=== PATIENT | male | born 1955 | race Caucasian/White ===

== ENCOUNTER 2019-05-31 20:42 | Inpatient (IN) | payer OTHER, MEDICARE ==
[~2019-05-31 20:42] MED LIST: ISOVUE-370 76%-LOCM 1 ML ONE
[2019-05-31 21:05] LABS: Hemoglobin 13.4 g/dL (14.0-18.0); Mean Corpuscular HGB CONC 32.8 g/dL (32.0-36.0); Mean Corpuscular Hemoglobin 30.1 pg (27.0-31.0); Mean Corpuscular Volume 91.9 fL (78.0-98.0); Mean Platelet Volume 7.3 fL (7.4-10.4); Platelet Count 254 thou/uL (130-400); RBC Distribution Width 11.4 % (11.5-14.5); Red Blood Cell (RBC) Count 4.44 mill/uL (4.70-6.10); White Blood Cell (WBC) Count 23.8 thou/uL (4.8-10.8)
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
[2019-05-31 21:21] LABS: Band 3 % (5-11); Lymphocytes 22 % (21-51); MDiff Complete? YES; Monocytes 10 % (0-10); Neutrophil 65 % (42-75)
[2019-05-31 21:25] LABS: ALT (SGPT) 42 U/L (8-55); AST (SGOT) 58 U/L (5-34); Albumin 4.6 g/dL (3.4-4.8); Alkaline Phosphatase 105 U/L (40-110); Anion Gap 14 mmol/L (10-20); BUN (Urea Nitrogen) 33 mg/dL (8.4-25.7); Bilirubin, Total 0.4 mg/dL (0.2-1.2); Calc. Creatinine Clearance 0 mL/min (70-130); Calcium 9.6 mg/dL (7.8-10.44); Carbon Dioxide 20 mmol/L (23-31); Chloride 111 mmol/L (98-107); Estimated GFR-MDRD 36; Globulin 2.8 g/dL (2.4-3.5); Glucose 140 mg/dL (80-115); Lipase 118 U/L (8-78); Potassium 4.3 mmol/L (3.5-5.1); Protein, Total 7.4 g/dL (5.8-8.1); Sodium 141 mmol/L (136-145)
[2019-05-31 21:28] LABS: INR-International Normal Ratio 1.1; PTT 25.8 SEC (22.9-36.1); Prothrombin Time 14.4 SEC (12.0-14.7)
[2019-05-31] MEDS ORDERED: Ondansetron PF 4 MG/2 ML Vial ONE (21:45)
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
[2019-05-31 21:49] LABS: Acetaminophen Less than 6.0 mcg/mL (10.0-30.0); Alcohol Less than 10 mg/dL (Less than 10); Salicylate Less than 8.0 mg/dL (15.0-30.0)
[2019-05-31] MEDS ORDERED: Acetaminophen 1,000 MG in Premix Bag 1 BAG IVPB SCH (22:00)
[2019-05-31] MEDS ORDERED: hydrALAZINE 20 MG/ML VIAL SLOW IVP PRN (22:12)
[2019-05-31] MEDS ORDERED: Dextrose 5% in Water 1,000 ML IV PRN (22:12)
[2019-05-31] MEDS ORDERED: Ondansetron PF 4 MG/2 ML Vial IVP PRN (22:12)
[2019-05-31] MEDS ORDERED: Morphine 2 MG/ML SYRINGE SLOW IVP PRN ×2 (22:12→22:25)
[2019-05-31] MEDS ORDERED: Dextrose 50% Abboject 50 ML SYRINGE SLOW IVP PRN (22:12)
[2019-05-31] MEDS ORDERED: Morphine 4 MG/ML VIAL SLOW IVP PRN (22:25)
[2019-05-31 22:27] LABS: Bilirubin Negative (Negative); Blood, Urine 2+ (Negative); Clarity Clear (Clear); Glucose, Urine (Dipstick) Normal (Negative); Leukocyte Negative Leu/uL (Negative); Nitrite Negative (Negative); Protein, Urine (Dipstick) 100 mg/dL (Neg-Trace); RBC/HPF Greater than 50 HPF (0-3); Squamous Epithelial 0-3 HPF (0-3); Urobilinogen Normal mg/dL (Less than 2)
[2019-05-31] MEDS ORDERED: Sodium Chloride 0.9% 1,000 ML IV SCH (22:30)
[2019-05-31 22:37] LABS: Bacteria/HPF Rare-Few HPF (None Seen)
[2019-05-31] MEDS ORDERED: Fentanyl 100 MCG/2 ML VIAL ONE (23:14)
[2019-05-31] MEDS: Fentanyl 100 MCG/2 ML VIAL SLOW IVP SCH (23:30)
[2019-05-31] MEDS ORDERED: Norepinephrine 8 MG/250 ML BAG IVPB PRN (23:42)
[2019-05-31] MEDS ORDERED: Norepinephrine 8 MG in Dextrose 5% in Water 242 ML IVPB PRN (23:43)
[2019-06-01 00:07] LABS: Actual Bicarbonate (HCO3a) 17.7 mEq/L (22-28); Base Excess (BEa) -7.7 mEq/L (-2.0 to +3.0); CO2 Tension 35.7 mmHg (35.0-45.0); Calcium, Ionized 1.16 mmol/L (1.12-1.30); Carboxyhemoglobin (COHb) 0.3 gm% (0.0-3.0); Hemoglobin (Hb) 11.1 g/dL (14.0-18.0); O2 Tension (PaO2) 87.4 mmHg (> 80.0); Potassium - ABG Lab 4.28 mmol/L (3.70-5.30); pH, Arterial 7.31 (7.35-7.45)
[2019-06-01] MEDS: Sodium Chloride 0.9% 1,000 ML IV SCH ×4 (00:18→21:20)
[2019-06-01 00:20] LABS: Cocaine Metabolite Screen Not Detected (NotDetected); Medtox Reader # READER 4; Phencyclidine (PCP) Not Detected (NotDetected); THC/Cannabinoid Screen Not Detected (NotDetected)
[2019-06-01 00:21] LABS: Amphetamine Not Detected (NotDetected); Barbiturates Screen Not Detected (NotDetected); Benzodiazepine Screen Not Detected (NotDetected); Medtox Control Line Valid? VALID (VALID); Methadone Not Detected (NotDetected); Methamphetamine Not Detected (NotDetected); Opiate Screen Not Detected (NotDetected); Oxycodone Screen Not Detected (NotDetected); Tricyclic Screen Not Detected (NotDetected)
[2019-06-01 00:28] LABS: Puncture Site R RADIAL
[2019-06-01 00:29] LABS: ALV-art Gradient 67.615 (0-20)
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
[2019-06-01] MEDS: Fentanyl 100 MCG/2 ML VIAL SLOW IVP PRN ×7 (01:24→23:31)
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
[2019-06-01 04:13] LABS: #Lymphocytes 0.8 thou/uL (1.20-3.40); #Monocytes 2.7 thou/uL (0.11-0.59); #Neutrophils 17.4 thou/uL (1.40-6.50); %Eosinophils 0.2 % (0.0-10.0); %Lymphocytes 3.6 % (21.0-51.0); %Monocytes 12.9 % (0.0-10.0); %Neutrophils 83.4 % (42.0-75.0); Hemoglobin 11.3 g/dL (14.0-18.0); Mean Corpuscular HGB CONC 32.6 g/dL (32.0-36.0); Mean Corpuscular Hemoglobin 29.9 pg (27.0-31.0); Mean Corpuscular Volume 91.9 fL (78.0-98.0); Platelet Count 192 thou/uL (130-400); RBC Distribution Width 11.6 % (11.5-14.5); Red Blood Cell (RBC) Count 3.76 mill/uL (4.70-6.10); White Blood Cell (WBC) Count 20.8 thou/uL (4.8-10.8)
[2019-06-01] MEDS: Acetaminophen 1,000 MG in Premix Bag 1 BAG IVPB SCH ×2 (04:29→10:00)
[2019-06-01 04:39] LABS: Anion Gap 13 mmol/L (10-20); BUN (Urea Nitrogen) 32 mg/dL (8.4-25.7); Calc. Creatinine Clearance 52 mL/min (70-130); Calcium 8.6 mg/dL (7.8-10.44); Carbon Dioxide 21 mmol/L (23-31); Chloride 113 mmol/L (98-107); Estimated GFR-MDRD 35; Glucose 186 mg/dL (80-115); Magnesium 1.8 mg/dL (1.6-2.6); Phosphorus 2.9 mg/dL (2.3-4.7); Potassium 5.1 mmol/L (3.5-5.1); Sodium 142 mmol/L (136-145)
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
[2019-06-01] MEDS: Famotidine/PF 20 mg/2ml Vial SLOW IVP SCH ×2 (09:30→21:25)
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
[2019-06-01] MEDS: Fentanyl 100 MCG/2 ML VIAL SLOW IVP SCH ×2 (13:15→13:18)
[2019-06-01] MEDS ORDERED: Haloperidol Lactate 5 MG/ML VIAL ONE (13:25)
[2019-06-01] MEDS ORDERED: diphenhydrAMINE 50 MG/ML VIAL ONE (13:42)
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
[2019-06-01] MEDS ORDERED: Sodium Chloride 0.9% 1,000 ML IV SCH (14:00)
[2019-06-01] MEDS: Sodium Bicarbonate 150 MEQ in Dextrose 5% in Water 1,000 ML IV SCH ×2 (14:12→23:29)
[2019-06-01] MEDS: Gabapentin 300 MG CAP PO SCH ×2 (14:29→21:41)
[2019-06-01] MEDS ORDERED: Fentanyl 100 MCG/2 ML VIAL SLOW IVP SCH (14:45)
[2019-06-01] MEDS ORDERED: diphenhydrAMINE 50 MG/ML VIAL IVP SCH (15:00)
[2019-06-01] MEDS ORDERED: Haloperidol Lactate 5 MG/ML VIAL SLOW IVP SCH (15:00)
[2019-06-01] MEDS: Cyclobenzaprine 10 MG TAB PO PRN (17:59)
[2019-06-01] MEDS: traMADol HCl 50 MG TAB PO SCH ×2 (18:00→23:34)
[2019-06-01] MEDS: Insulin Regular 300 UNITS/3 ML VIAL SC PRN (18:23)
[2019-06-02] MEDS ORDERED: Fentanyl 100 MCG/2 ML VIAL SLOW IVP SCH (00:15)
[2019-06-02] MEDS: Acetaminophen 1,000 MG in Premix Bag 1 BAG IVPB SCH ×4 (00:28→18:15)
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
[2019-06-02 04:38] LABS: Anion Gap 10 mmol/L (10-20); BUN (Urea Nitrogen) 30 mg/dL (8.4-25.7); Calc. Creatinine Clearance 59 mL/min (70-130); Calcium 8.5 mg/dL (7.8-10.44); Carbon Dioxide 26 mmol/L (23-31); Chloride 111 mmol/L (98-107); Estimated GFR-MDRD 41; Glucose 190 mg/dL (80-115); Magnesium 1.8 mg/dL (1.6-2.6); Phosphorus 1.6 mg/dL (2.3-4.7); Potassium 3.9 mmol/L (3.5-5.1); Sodium 143 mmol/L (136-145)
[2019-06-02 04:43] LABS: CK (CPK) 4249 U/L (30-200)
[2019-06-02] MEDS: Insulin Regular 300 UNITS/3 ML VIAL SC PRN ×2 (04:57→16:32)
[2019-06-02] MEDS ORDERED: Magnesium 2 GM/50 ML 2 GM in Premix Bag 1 BAG IVPB SCH (05:00)
[2019-06-02] MEDS ORDERED: Potassium Phosphate 30 MMOL in Sodium Chloride 0.9% 500 ML IVPB SCH (05:00)
[2019-06-02] MEDS ORDERED: Acetaminophen 500 MG TAB PO SCH (06:00)
[2019-06-02 06:09] LABS: Band 17 % (5-11); Hemoglobin 8.9 g/dL (14.0-18.0); Lymphocytes 5 % (21-51); MDiff Complete? YES; Mean Corpuscular HGB CONC 33.7 g/dL (32.0-36.0); Mean Corpuscular Hemoglobin 31.3 pg (27.0-31.0); Mean Platelet Volume 6.9 fL (7.4-10.4); Monocytes 16 % (0-10); Neutrophil 62 % (42-75); Platelet Count 128 thou/uL (130-400); RBC Distribution Width 11.6 % (11.5-14.5); Red Blood Cell (RBC) Count 2.84 mill/uL (4.70-6.10); White Blood Cell (WBC) Count 18.2 thou/uL (4.8-10.8)
[2019-06-02] MEDS: traMADol HCl 50 MG TAB PO SCH ×4 (06:23→23:38)
[2019-06-02] MEDS: Fentanyl 100 MCG/2 ML VIAL SLOW IVP PRN (08:16)
[2019-06-02] MEDS: Famotidine/PF 20 mg/2ml Vial SLOW IVP SCH ×2 (08:17→20:56)
[2019-06-02] MEDS: Sodium Bicarbonate 150 MEQ in Dextrose 5% in Water 1,000 ML IV SCH ×2 (08:33→17:35)
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
[2019-06-02] MEDS: Gabapentin 300 MG CAP PO SCH ×3 (09:30→20:57)
[2019-06-02] MEDS: Morphine 4 MG/ML VIAL SLOW IVP PRN ×4 (09:56→21:57)
[2019-06-02] MEDS ORDERED: Morphine 2 MG/ML SYRINGE SLOW IVP PRN (10:33)
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
[2019-06-02] MEDS: traMADol HCl 50 MG TAB PO PRN (13:40)
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
[2019-06-02] MEDS ORDERED: Amiodarone 150 MG in Dextrose 5% in Water 100 ML IVPB SCH (23:00)
[2019-06-02] MEDS: Amiodarone 450 MG in Dextrose 5% in Water 250 ML IVPB SCH (23:29)
[2019-06-02 23:47] LABS: Anion Gap 12 mmol/L (10-20); BUN (Urea Nitrogen) 25 mg/dL (8.4-25.7); Calc. Creatinine Clearance 64 mL/min (70-130); Calcium 8.6 mg/dL (7.8-10.44); Carbon Dioxide 30 mmol/L (23-31); Chloride 105 mmol/L (98-107); Estimated GFR-MDRD 45; Glucose 152 mg/dL (80-115); Magnesium 2.6 mg/dL (1.6-2.6); Phosphorus 2.8 mg/dL (2.3-4.7); Potassium 4.1 mmol/L (3.5-5.1); Sodium 143 mmol/L (136-145)
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
[2019-06-03] MEDS: Morphine 4 MG/ML VIAL SLOW IVP PRN ×3 (01:47→11:13)
[2019-06-03] MEDS ORDERED: Furosemide 40 MG/4 ML VIAL ONE (03:22)
[2019-06-03 03:43] LABS: Actual Bicarbonate (HCO3a) 32.2 mEq/L (22-28); CO2 Tension 56.1 mmHg (35.0-45.0); Calcium, Ionized 1.11 mmol/L (1.12-1.30); Carboxyhemoglobin (COHb) 1.2 gm% (0.0-3.0); Hemoglobin (Hb) 9.6 g/dL (14.0-18.0); Potassium - ABG Lab 3.99 mmol/L (3.70-5.30); pH, Arterial 7.38 (7.35-7.45)
[2019-06-03] MEDS ORDERED: Furosemide 40 MG/4 ML VIAL SLOW IVP SCH ×3 (03:45→16:00)
[2019-06-03 03:46] LABS: O2 Tension (PaO2) 59.3 mmHg (> 80.0)
[2019-06-03 03:47] LABS: ALV-art Gradient 98.735 (0-20)
[2019-06-03 04:05] LABS: Anion Gap 10 mmol/L (10-20); BUN (Urea Nitrogen) 27 mg/dL (8.4-25.7); Calc. Creatinine Clearance 61 mL/min (70-130); Calcium 8.5 mg/dL (7.8-10.44); Carbon Dioxide 31 mmol/L (23-31); Chloride 105 mmol/L (98-107); Estimated GFR-MDRD 42; Glucose 177 mg/dL (80-115); Magnesium 2.1 mg/dL (1.6-2.6); Phosphorus 3.3 mg/dL (2.3-4.7); Potassium 4.2 mmol/L (3.5-5.1); Sodium 142 mmol/L (136-145)
[2019-06-03 04:57] LABS: Band 4 % (5-11); Eosinophils 1 % (0-10); Hemoglobin 9.1 g/dL (14.0-18.0); Lymphocytes 8 % (21-51); MDiff Complete? YES; Mean Corpuscular HGB CONC 33.4 g/dL (32.0-36.0); Mean Corpuscular Hemoglobin 31.1 pg (27.0-31.0); Mean Corpuscular Volume 93.1 fL (78.0-98.0); Mean Platelet Volume 7.6 fL (7.4-10.4); Monocytes 12 % (0-10); Neutrophil 75 % (42-75); Platelet Count 162 thou/uL (130-400); RBC Distribution Width 11.7 % (11.5-14.5); Red Blood Cell (RBC) Count 2.93 mill/uL (4.70-6.10); White Blood Cell (WBC) Count 24.2 thou/uL (4.8-10.8)
[2019-06-03] MEDS: traMADol HCl 50 MG TAB PO SCH ×3 (05:33→17:26)
[2019-06-03] MEDS: Amiodarone 450 MG in Dextrose 5% in Water 250 ML IVPB SCH ×2 (08:22→16:14)
--- NOTE | 2019-06-03 08:59 | RAD ---
CHEST ONE VIEW: HISTORY: Follow up pneumothorax. FINDINGS: There are progressive pleural and parenchymal opacity changes in the right lower chest as well as the left base. No significant pneumothorax. IMPRESSION: Worsening bibasilar pleural and parenchymal opacity changes. No significant pneumothorax. Continued short term followup. CODE T POS: JOVANNI
[2019-06-03] MEDS: Gabapentin 300 MG CAP PO SCH ×3 (09:50→21:29)
--- NOTE | 2019-06-03 09:56 | RAD ---
Exam: 1 view abdomen HISTORY: Dobbhoff feeding tube placement. FINDINGS: Dobbhoff feeding tube appears to be in the proximal stomach. Advancement and repositioning is recommended IMPRESSION: Dobbhoff feeding tube in the proximal stomach. Recommendations as above
[2019-06-03] MEDS: Famotidine/PF 20 mg/2ml Vial SLOW IVP SCH ×2 (09:59→21:29)
[2019-06-03] MEDS: cefTRIAXone\\ROCEPHIN 2 GM in Sodium Chloride 0.9% 100 ML IVPB SCH (11:14)
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
[2019-06-03] MEDS: Insulin Regular 300 UNITS/3 ML VIAL SC PRN ×3 (12:20→21:29)
[2019-06-03] MEDS ORDERED: Metolazone 2.5 MG TAB PO SCH (16:00)
[2019-06-03] MEDS: Senokot S 8.6-50 MG TAB PO SCH (21:29)
[2019-06-04] MEDS: Amiodarone 450 MG in Dextrose 5% in Water 250 ML IVPB SCH ×2 (03:03→18:19)
[2019-06-04] MEDS: traMADol HCl 50 MG TAB PO SCH ×4 (05:35→17:13)
[2019-06-04 06:32] LABS: #Eosinphils 0.4 thou/uL (0.0-0.7); #Lymphocytes 2.5 thou/uL (1.20-3.40); #Monocytes 2.4 thou/uL (0.11-0.59); #Neutrophils 12.7 thou/uL (1.40-6.50); %Basophils 0.3 % (0.0-1.0); %Eosinophils 2.1 % (0.0-10.0); %Lymphocytes 13.7 % (21.0-51.0); %Monocytes 13.4 % (0.0-10.0); %Neutrophils 70.5 % (42.0-75.0); Hemoglobin 8.3 g/dL (14.0-18.0); Mean Corpuscular HGB CONC 33.3 g/dL (32.0-36.0); Mean Corpuscular Hemoglobin 31.5 pg (27.0-31.0); Mean Corpuscular Volume 94.6 fL (78.0-98.0); Mean Platelet Volume 7.6 fL (7.4-10.4); Platelet Count 169 thou/uL (130-400); RBC Distribution Width 11.6 % (11.5-14.5); Red Blood Cell (RBC) Count 2.63 mill/uL (4.70-6.10)
[2019-06-04 06:58] LABS: Anion Gap 12 mmol/L (10-20); BUN (Urea Nitrogen) 31 mg/dL (8.4-25.7); Calc. Creatinine Clearance 66 mL/min (70-130); Calcium 8.6 mg/dL (7.8-10.44); Carbon Dioxide 34 mmol/L (23-31); Chloride 99 mmol/L (98-107); Estimated GFR-MDRD 42; Glucose 143 mg/dL (80-115); Magnesium 2.1 mg/dL (1.6-2.6); Phosphorus 2.1 mg/dL (2.3-4.7); Potassium 3.6 mmol/L (3.5-5.1); Sodium 141 mmol/L (136-145)
[2019-06-04] MEDS: Senokot S 8.6-50 MG TAB PO SCH ×2 (11:05→21:27)
[2019-06-04] MEDS: Gabapentin 300 MG CAP PO SCH ×3 (11:05→21:27)
[2019-06-04] MEDS: cefTRIAXone\\ROCEPHIN 2 GM in Sodium Chloride 0.9% 100 ML IVPB SCH (11:06)
[2019-06-04] MEDS: Polyethylene Glycol 3350 17 GM Packet PO SCH (11:15)
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
--- NOTE | 2019-06-04 16:49 | EKG ---
Test Reason : Blood Pressure : / mmHG Vent. Rate : 081 BPM Atrial Rate : 081 BPM P-R Int : 174 ms QRS Dur : 092 ms QT Int : 504 ms P-R-T Axes : 030 -12 030 degrees QTc Int : 585 ms Sinus rhythm with frequent Premature ventricular complexes Nonspecific ST abnormality Prolonged QT Abnormal ECG Confirmed by REAGAN COMBS ([id number]) on 06/04/2019 4:48:52 PM Referred By: SARAH Confirmed By:REAGAN COMBS
[2019-06-04] MEDS: Amiodarone 200 MG TAB PO SCH (21:27)
[2019-06-05] MEDS: traMADol HCl 50 MG TAB PO SCH ×5 (00:05→23:27)
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
[2019-06-05] MEDS ORDERED: Morphine 2 MG/ML SYRINGE SLOW IVP PRN (07:53)
[2019-06-05] MEDS ORDERED: Bisacodyl 10 MG SUPP PR SCH (08:30)
[2019-06-05] MEDS: Lisinopril 20 MG TAB PO SCH ×2 (09:26→21:13)
[2019-06-05] MEDS: Gabapentin 300 MG CAP PO SCH ×3 (09:27→21:13)
[2019-06-05] MEDS: Senokot S 8.6-50 MG TAB PO SCH ×2 (09:27→21:12)
[2019-06-05] MEDS: Amiodarone 200 MG TAB PO SCH ×2 (09:27→21:12)
[2019-06-05] MEDS: Levothyroxine Sodium 25 MCG TAB PO SCH (09:27)
[2019-06-05] MEDS: Polyethylene Glycol 3350 17 GM Packet PO SCH (09:28)
[2019-06-05] MEDS ORDERED: Lidocaine 5% Patch TD SCH (09:45)
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
[2019-06-05] MEDS: cefTRIAXone\\ROCEPHIN 2 GM in Sodium Chloride 0.9% 100 ML IVPB SCH (11:30)
[2019-06-05 15:29] VITALS: BMI 32.8
[2019-06-05] MEDS: Insulin Regular 300 UNITS/3 ML VIAL SC PRN (17:51)
[2019-06-05] MEDS ORDERED: Lidocaine Patch Removal 1 EACH TOP SCH (21:00)
[2019-06-05] MEDS ORDERED: Amlodipine 10 MG TAB PO SCH (21:00)
[2019-06-05] MEDS: Aspirin 81 mg Enteric Coated Tablet PO SCH (21:12)
[2019-06-05] MEDS: traMADol HCl 50 MG TAB PO PRN (23:27)
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
[2019-06-06] MEDS: Cyclobenzaprine 10 MG TAB PO PRN (07:04)
[2019-06-06] MEDS: traMADol HCl 50 MG TAB PO SCH ×2 (07:04→11:12)
[2019-06-06 08:20] VITALS: BP 129/78; TEMP 97.9
[2019-06-06 08:32] LABS: Hemoglobin 8.6 g/dL (14.0-18.0); Mean Corpuscular HGB CONC 33.3 g/dL (32.0-36.0); Mean Corpuscular Hemoglobin 31.2 pg (27.0-31.0); Mean Corpuscular Volume 93.7 fL (78.0-98.0); Mean Platelet Volume 7.3 fL (7.4-10.4); Platelet Count 215 thou/uL (130-400); RBC Distribution Width 11.6 % (11.5-14.5); Red Blood Cell (RBC) Count 2.75 mill/uL (4.70-6.10); White Blood Cell (WBC) Count 17.7 thou/uL (4.8-10.8)
[2019-06-06 08:49] LABS: Anion Gap 17 mmol/L (10-20); BUN (Urea Nitrogen) 34 mg/dL (8.4-25.7); Calc. Creatinine Clearance 84 mL/min (70-130); Calcium 8.8 mg/dL (7.8-10.44); Carbon Dioxide 24 mmol/L (23-31); Chloride 100 mmol/L (98-107); Estimated GFR-MDRD 58; Glucose 104 mg/dL (80-115); Magnesium 2.1 mg/dL (1.6-2.6); Phosphorus 3.9 mg/dL (2.3-4.7); Potassium 3.7 mmol/L (3.5-5.1); Sodium 137 mmol/L (136-145)
[2019-06-06] MEDS ORDERED: Lidocaine 5% Patch TD SCH (09:00)
[2019-06-06 09:10] LABS: Anisocytosis SLIGHT = 6-15 cells (100X) (0-5/hpf); Eosinophils 1 % (0-10); Lymphocytes 18 % (21-51); MDiff Complete? YES; Microcytosis SLIGHT = 6-15 cells (100X) (0-5/hpf); Monocytes 16 % (0-10); Neutrophil 64 % (42-75); Platelet Morphology Comment Appears Adequate; Polychromasia SLIGHT = 2-3 cells (100X) (0-2/hpf); Reactive Lymphocytes 1 % (0-10)
[2019-06-06] MEDS: Levothyroxine Sodium 25 MCG TAB PO SCH (09:19)
[2019-06-06] MEDS: Lisinopril 20 MG TAB PO SCH (09:19)
[2019-06-06] MEDS: Aspirin 81 mg Enteric Coated Tablet PO SCH (09:19)
[2019-06-06] MEDS: Gabapentin 300 MG CAP PO SCH (09:19)
[2019-06-06] MEDS: Amiodarone 200 MG TAB PO SCH (09:19)
[2019-06-06] MEDS: Polyethylene Glycol 3350 17 GM Packet PO SCH (09:20)
[2019-06-06] MEDS: Senokot S 8.6-50 MG TAB PO SCH (09:20)
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
[2019-06-06] MEDS: cefTRIAXone\\ROCEPHIN 2 GM in Sodium Chloride 0.9% 100 ML IVPB SCH (11:28)
== END 2019-06-06 12:10 | DRG 963 ==
LOC: ERS 20:42 → CCU 22:12 → SURG A 06-05 12:35
PROVIDERS: ADMIT Specialist; ATTEND Specialist
PROC: 5A09357 Assistance with Respiratory Ventilation, Less than 24 Consecutive Hours, Continuous Positive Airway Pressure (ICD-10-PCS; principal; 2019-05-31)
DX: S06.6X0A Traumatic subarachnoid hemorrhage without loss of consciousness, initial encounter (principal); J69.0 Pneumonitis due to inhalation of food and vomit; S37.051A Moderate laceration of right kidney, initial encounter; S22.43XA Multiple fractures of ribs, bilateral, initial encounter for closed fracture; S12.200A Unspecified displaced fracture of third cervical vertebra, initial encounter for closed fracture; S22.019A Unspecified fracture of first thoracic vertebra, initial encounter for closed fracture; S32.019A Unspecified fracture of first lumbar vertebra, initial encounter for closed fracture; S32.029A Unspecified fracture of second lumbar vertebra, initial encounter for closed fracture; S32.039A Unspecified fracture of third lumbar vertebra, initial encounter for closed fracture; S32.049A Unspecified fracture of fourth lumbar vertebra, initial encounter for closed fracture; S22.069A Unspecified fracture of T7-T8 vertebra, initial encounter for closed fracture; S22.20XA Unspecified fracture of sternum, initial encounter for closed fracture; S27.0XXA Traumatic pneumothorax, initial encounter; N17.9 Acute kidney failure, unspecified; M62.82 Rhabdomyolysis; S27.892A Contusion of other specified intrathoracic organs, initial encounter; S06.5X0A Traumatic subdural hemorrhage without loss of consciousness, initial encounter; S42.112A Displaced fracture of body of scapula, left shoulder, initial encounter for closed fracture; E03.9 Hypothyroidism, unspecified; R40.2412 Glasgow coma scale score 13-15, at arrival to emergency department; I11.0 Hypertensive heart disease with heart failure; I50.9 Heart failure, unspecified; I48.91 Unspecified atrial fibrillation; R40.2124 Coma scale, eyes open, to pain, 24 hours or more after hospital admission; R40.2364 Coma scale, best motor response, obeys commands, 24 hours or more after hospital admission; R40.2244 Coma scale, best verbal response, confused conversation, 24 hours or more after hospital admission; E87.6 Hypokalemia; E83.39 Other disorders of phosphorus metabolism; Y92.410 Unspecified street and highway as the place of occurrence of the external cause; V23.4XXA Motorcycle driver injured in collision with car, pick-up truck or van in traffic accident, initial encounter; Z79.899 Other long term (current) drug therapy; Z79.890 Hormone replacement therapy
CPT/HCPCS: 36415; 36416; 36430; 70450; 71045; 71260; 72125; 74018; 74177; 80048; 80053; 80306; 80307; 81003; 81015; 82533; 82550; 82805; 83605; 83690; 83735; 83880; 84100; 84484; 85025; 85610; 85730; 86850; 86900; 86901; 87070; 87205; 93005; 93010; 93306; 94640; 94660; G0390; J0131; J0282; J0696; J1200; J1630; J1815; J1940; J2270; J2405; J3010; J3475; J3490; J7050; J7070; J7620; L0174; L0200; L0639; P9016; Q9966; S0028

== ENCOUNTER 2019-07-02 20:07 | Emergency (ER) | payer OTHER ==
[~2019-07-02 20:07] MED LIST changes: -ISOVUE-370 76%-LOCM 1 ML ONE; +Iopamidol 370 76% 100 ML VIAL ONE
[2019-07-02] MEDS ORDERED: Morphine 4 MG/ML VIAL ONE (20:52)
[2019-07-02] MEDS ORDERED: Ondansetron PF 4 MG/2 ML Vial ONE (20:52)
[2019-07-02 20:58] LABS: Hemoglobin 12.7 g/dL (14.0-18.0); Mean Corpuscular HGB CONC 32.6 g/dL (32.0-36.0); Mean Corpuscular Hemoglobin 30.6 pg (27.0-31.0); Mean Corpuscular Volume 93.8 fL (78.0-98.0); Platelet Count 311 thou/uL (130-400); RBC Distribution Width 12.2 % (11.5-14.5); Red Blood Cell (RBC) Count 4.16 mill/uL (4.70-6.10); White Blood Cell (WBC) Count 24.8 thou/uL (4.8-10.8)
[2019-07-02 21:15] LABS: Band 1 % (5-11); Hypochromia SLIGHT = 6-15 cells (100X) (0-5/hpf); Lymphocytes 4 % (21-51); MDiff Complete? YES; Monocytes 5 % (0-10); Neutrophil 90 % (42-75); Platelet Morphology Comment Appears Adequate
[2019-07-02 21:21] LABS: ALT (SGPT) 12 U/L (8-55); AST (SGOT) 15 U/L (5-34); Albumin 4.2 g/dL (3.4-4.8); Alkaline Phosphatase 149 U/L (40-110); Anion Gap 12 mmol/L (10-20); BUN (Urea Nitrogen) 18 mg/dL (8.4-25.7); Calc. Creatinine Clearance 0 mL/min (70-130); Calcium 9.8 mg/dL (7.8-10.44); Carbon Dioxide 25 mmol/L (23-31); Chloride 107 mmol/L (98-107); Estimated GFR-MDRD 49; Globulin 3.3 g/dL (2.4-3.5); Glucose 144 mg/dL (80-115); Lipase 35 U/L (8-78); Potassium 3.8 mmol/L (3.5-5.1); Protein, Total 7.5 g/dL (5.8-8.1); Sodium 140 mmol/L (136-145)
[2019-07-02 21:40] LABS: CKMB 0.8 ng/mL (0-6.6)
--- NOTE | 2019-07-02 22:49 | CT ---
CT ABDOMEN WITH CONTRAST CT PELVIS WITH CONTRAST: DATE: 07/02/2019 HISTORY: 64-year-old male with left lower quadrant abdominal pain COMPARISON: 06/09/2019 TECHNIQUE: IV injection of iodinated contrast media: administered. Oral contrast media:Not administered FINDINGS: Previously large right pleural effusion has decreased in size, and is now moderate-large. Moderate size left pleural effusion is unchanged. No pneumoperitoneum. New finding of small to moderate amount of free fluid in the dependent portion of pelvic cavity. New finding of mural edema and mural thickening of left hemicolon, from splenic flexure through entir e descending colon, and proximal sigmoid colon, with surrounding pericolonic edema, and small amount of free fluid along the left paracolic gutter. Large number of diverticula throughout sigmoid:. No small bowel dilation. Normal appendix, liver, pancreas, adrenals, and spleen. No hydronephrosis. At least 3 right renal cystic lesions are again noted. Of the 2 moderate size lower pole cysts, the m ore anterior and inferior exophytic right renal cyst has grown, currently measuring approximately 3.3 x 2.6 x 2.9 cm. Density of this mass is 16 Hounsfield units. No small bowel dilation IMPRESSION: 1) Severe left papo colitis involving entire descending colon and proximal sigmoid colon. 2.) Bilateral pleural effusions, right greater than left. The right one has decreased in volume since prior study. 3) interval rapid growth of one of the right renal lower pole exophytic masses. The growth is probabl y because of internal hemorrhage of a hemorrhagic renal cyst..
[2019-07-03] MEDS ORDERED: Piperacillin/Tazobactam 3.375 GM VIAL ONE (00:03)
[2019-07-03] MEDS ORDERED: Morphine 4 MG/ML VIAL ONE (00:03)
[2019-07-03 01:00] LABS: Bacteria/HPF None Seen HPF (None Seen); Bilirubin Negative (Negative); Blood, Urine Negative (Negative); Calcium Oxalate Crystals 1+ HPF (None Seen); Clarity Clear (Clear); Glucose, Urine (Dipstick) Normal (Negative); Leukocyte Negative Leu/uL (Negative); Mucous/LPF 2+ LPF (<2+); Nitrite Negative (Negative); Protein, Urine (Dipstick) 30 mg/dL (Neg-Trace); Squamous Epithelial None Seen HPF (0-3); Urobilinogen Normal mg/dL (Less than 2)
== END 2019-07-03 01:46 | disposition short-term general hospital (02) ==
LOC: ERS 20:07
DX: K52.9 Noninfective gastroenteritis and colitis, unspecified (principal); R79.89 Other specified abnormal findings of blood chemistry; I10 Essential (primary) hypertension
CPT/HCPCS: 74177; 80053; 81003; 81015; 82553; 83690; 84484; 85025; 93005; 96361; 96365; 96375; 96376; J2270; J2405; J2543; Q9967

== ENCOUNTER 2019-07-14 09:08 | Outpatient (CLI) | payer OTHER ==
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
== END 2019-07-14 09:09 | disposition home or self-care (01) ==
LOC: TBSIIMAG 09:08
PROVIDERS: ATTEND Neurological Surgery
DX: S06.6X0D Traumatic subarachnoid hemorrhage without loss of consciousness, subsequent encounter (principal); M48.56XD Collapsed vertebra, not elsewhere classified, lumbar region, subsequent encounter for fracture with routine healing
CPT/HCPCS: 70450

== ENCOUNTER 2019-07-14 10:47 | Outpatient (CLI) | payer OTHER ==
--- NOTE | 2019-07-14 11:38 | RAD ---
Exam: 2 views lumbar spine HISTORY: Lumbar compression fracture. COMPARISON: None Correlation: Abdomen and pelvic CT 06/24/2019 FINDINGS: 5 lumbar type vertebra. Mild loss of vertebral body height at L1 suggesting compression fra cture. No obvious retropulsion. Limited evaluation of the examination due to patient position. IMPRESSION: Mild compression fracture of the L1 vertebral body.
--- NOTE | 2019-07-14 11:54 | RAD ---
EXAM: 2 views of the thoracic spine HISTORY: Thoracic spine pain COMPARISON: None FINDINGS: 2 views of the thoracic spine shows mild curvature the spine. The intervertebral discs are narrowed throughout the cervical spine with moderate surrounding osteophytes. The vertebral bodies demonstrate normal height without fracture. IMPRESSION: Moderate degenerative changes of the thoracic spine without acute osseous abnormality.
--- NOTE | 2019-07-14 12:03 | RAD ---
XR Cerv Sp Ap Lat STANDARD History: Spinous process fracture Comparison: Cervical spine CT May 31, 2019 Findings: No further displacement of the C5 spinous process fracture. No acute superimposed fracture or malalignment. Healing left posterior first rib fracture. Old right midclavicular fracture. Lateral left second rib fracture appears to be healing. Impression: No further displacement of the healing C5 spinous process as well as rib fractures.
== END 2019-07-14 10:48 | disposition home or self-care (01) ==
LOC: BICRAD 10:47
PROVIDERS: ATTEND Neurological Surgery
DX: S32.009A Unspecified fracture of unspecified lumbar vertebra, initial encounter for closed fracture (principal); S06.6X0A Traumatic subarachnoid hemorrhage without loss of consciousness, initial encounter; S12.400D Unspecified displaced fracture of fifth cervical vertebra, subsequent encounter for fracture with routine healing; M47.814 Spondylosis without myelopathy or radiculopathy, thoracic region; S32.019A Unspecified fracture of first lumbar vertebra, initial encounter for closed fracture; S22.32XD Fracture of one rib, left side, subsequent encounter for fracture with routine healing
CPT/HCPCS: 72040; 72070; 72100